=== PATIENT | female | born 1945 | race Two or more races ===

== ENCOUNTER → 2017-06-26 | Outpatient (CLI) | payer MEDICARE ==
[~2017-06-26] MED LIST: ALBU1.25 NEB; ALBU8.5H8 INH; DIAZ2TAB3 PO; LANS15TA6 PO; TIOT18CA INH; VENL150C6 PO; mirtazapine PO; prednisone PO
[2017-06-26 15:19] LABS: HEMATOCRIT 35.9 % (34.6-47.8); WHITE BLOOD COUNT 11.3 x10^3/uL (3.4-10)
[2017-06-26 15:31] LABS: ASPARTATE AMINO TRANSFERASE 14 U/L (15-37); BLOOD UREA NITROGEN 11 mg/dL (7-18)
[2017-06-26 15:54] LABS: HIV 1&2 ANTIBODY SCREEN Nonreactive (Nonreactive); HIV-1 p24 ANTIGEN Nonreactive (Nonreactive)
== END | disposition home or self-care (01) ==
LOC: STAR 14:04
PROVIDERS: ATTEND Orthopaedic Surgery Orthopaedic Surgery of the Spine
DX: Z01.818 Encounter for other preprocedural examination (principal); M48.54XA Collapsed vertebra, not elsewhere classified, thoracic region, initial encounter for fracture; M51.04 Intervertebral disc disorders with myelopathy, thoracic region; R79.1 Abnormal coagulation profile
CPT/HCPCS: 36415; 71020; 80053; 80074; 81001; 85025; 85610; 85651; 85730; 86703; 87086; 87899; 93005; G0435